=== PATIENT | male | born 1995 | race Caucasian/White ===

== ENCOUNTER 2019-06-07 22:48 | Emergency (ER) | payer BC, OTHER, SELFPAY ==
[2019-06-07] MEDS ORDERED: Clindamycin 150 MG CAP ONE (23:40)
[2019-06-07] MEDS ORDERED: Ibuprofen 800 MG TAB ONE (23:40)
== END 2019-06-07 23:50 | disposition home or self-care (01) ==
LOC: MADERS 22:48
DX: L03.316 Cellulitis of umbilicus (principal)
CPT/HCPCS: 99283